=== PATIENT | female | born 1930 | race Caucasian/White ===

== ENCOUNTER 2019-04-04 18:31 | Emergency (ER) | payer MEDICARE, BC ==
[~2019-04-04] VITALS: Ht 162.6 cm; Wt 89.0 kg
[2019-04-04] MEDS ORDERED: SULF1TAB49 PO (20:34)
[2019-04-04 20:35] LABS: CLARITY,URINE CLOUDY (Clear); COLOR,URINE YELLOW (Yellow)
[2019-04-04 20:40] LABS: UA COLLECTION TYPE CLN CATCH MIDSTREAM
[2019-04-04 20:43] LABS: BACTERIA,URINE FEW /HPF (Neg); RBC,URINE 20-50 /HPF (0-2); SQUAMOUS EPITHELIAL CELL,UR FEW /LPF (FEW); WBC,URINE 30-50 /HPF (0-4)
[2019-04-04 21:01] VITALS: BP 162/68
== END 2019-04-04 20:48 | disposition home or self-care (01) ==
LOC: ER 18:32
DX: N39.0 Urinary tract infection, site not specified (principal); Z79.899 Other long term (current) drug therapy
CPT/HCPCS: 81001; 87077; 87088; 87186; 99283